=== PATIENT | male | born 1995 | race Caucasian/White ===

== ENCOUNTER 2016-11-24 11:03 | Emergency (ER) | payer OTHER ==
[2016-11-24] MEDS ORDERED: NS 1,000 ML IV ONE (13:54)
[2016-11-24] MEDS ORDERED: MECLIZINE HCL 25 MG TAB PO ONE (13:54)
--- NOTE | 2016-11-24 13:54 | EDPHY ---
H & P Time Seen by Provider: 11/24/16 13:19 HPI/ROS: Chief complaint. Dizzy HPI. Patient is a 21-year-old male who presents with dizziness with head movement that started this morning. He feels slightly lightheaded and faint on standing. No abdominal pain, chest pain, shortness of breath. No recent upper respiratory symptoms or fever. No tinnitus. No similar symptoms previously. ROS Constitutional. no fever/chills, no weakness Eyes. no problems with vision ENT. no sore throat, no nasal drainage Cardiovascular. no chest pain Respiratory. no shortness of breath, no cough Abdominal. no abdominal pain, no nausea/vomiting, no diarrhea . no problems urinating MS. no calf pain/swelling, no neck/back pain, no joint pain Skin. no rash Lymph. no swollen glands Neuro. Lightheaded and dizzy Past Medical/Surgical History: Healthy Social History: Single, nonsmoker, no alcohol Smoking Status: Never smoked Physical Exam: General Appearance: Alert well-developed male mild distress vital signs are stable Eyes: Pupils equal and round no pallor or injection. ENT, Mouth: Mucous membranes are moist. Tympanic membranes are normal Respiratory: There are no retractions, lungs are clear to auscultation. Cardiovascular: Regular rate and rhythm. Gastrointestinal: Abdomen is soft and nontender, no masses, bowel sounds normal. Neurological: Awake and alert, sensory and motor exams grossly normal. Skin: Warm and dry, no rashes. Musculoskeletal: Neck is supple nontender. Extremities symmetrical, full range of motion. Psychiatric: Patient is oriented X 3, there is no agitation. Constitutional: Initial Vital Signs Temperature (C) 36.9 C 11/24/16 11:32 Heart Rate 75 11/24/16 11:32 Respiratory Rate 16 11/24/16 11:32 Blood Pressure 98/70 L 11/24/16 11:32 O2 Sat (%) 98 11/24/16 11:32 O2 Delivery Mode Room Air Allergies/Adverse Reactions: No Known Allergies Allergy (Verified 11/24/16 11:35) Home Medications: Medication Instructions Recorded Meclizine HCl [Antivert] 25 mg PO Q6-8PRN PRN #10 tablet 11/24/16 Medical Decision Making - Diagnostics EKG Interpretation: EKG interpreted by me shows normal sinus rhythm with normal interval and axis. QRS shows a right ventricular hypertrophy. There is no arrhythmia. The rate is 56 Procedures: IV normal saline. Meclizine by mouth ED Course/Re-evaluation: Re-evaluation 3:50 p.m.--patient now feels well and without symptoms Patient and I discussed lab and EKG findings. We discussed treatment plan including criteria for return importance of follow-up and further evaluation. He expresses understanding and agreement Differential Diagnosis: This sounds like vertigo as he has symptoms especially with head movement. He was somewhat dizzy on standing this could represent dehydration I considered acute coronary syndrome, arrhythmia, electrolyte abnormalities as well - Data Points Laboratory Results: Laboratory Results 11/24/16 14:10 11/24/16 14:10 11/24/16 11/24/16 14:10 14:10 WBC 6.17 10^3/uL 10^3/uL (3.80-9.50) RBC 5.55 10^6/uL 10^6/uL (4.40-6.38) Hgb 17.0 g/dL g/dL (13.7-17.5) Hct 48.1 % % (40.0-51.0) MCV 86.7 fL fL (81.5-99.8) MCH 30.6 pg pg (27.9-34.1) MCHC 35.3 g/dL g/dL (32.4-36.7) RDW 11.8 % % (11.5-15.2) Plt Count 198 10^3/uL 10^3/uL (150-400) MPV 10.9 fL fL (8.7-11.7) Neut % (Auto) 67.4 % % (39.3-74.2) Lymph % (Auto) 25.4 % % (15.0-45.0) [place] % (Auto) 5.3 % % (4.5-13.0) Eos % (Auto) 1.1 % % (0.6-7.6) Baso % (Auto) 0.5 % % (0.3-1.7) Nucleat RBC Rel Count 0.0 % % (0.0-0.2) Absolute Neuts (auto) 4.15 10^3/uL 10^3/uL (1.70-6.50) Absolute Lymphs (auto) 1.57 10^3/uL 10^3/uL (1.00-3.00) Absolute Monos (auto) 0.33 10^3/uL 10^3/uL (0.30-0.80) Absolute Eos (auto) 0.07 10^3/uL 10^3/uL (0.03-0.40) Absolute Basos (auto) 0.03 10^3/uL 10^3/uL (0.02-0.10) Absolute Nucleated RBC 0.00 10^3/uL 10^3/uL (0-0.01) Immature Gran % 0.3 % % (0.0-1.1) Immature Gran # 0.02 10^3/uL 10^3/uL (0.00-0.10) Sodium 141 mEq/L mEq/L (134-144) Potassium 3.9 mEq/L mEq/L (3.5-5.2) Chloride 102 mEq/L mEq/L (97-110) Carbon Dioxide 26 mEq/l mEq/l (22-31) Anion Gap 13 mEq/L mEq/L (8-16) BUN 15 mg/dL mg/dL (7-23) Creatinine 1.1 mg/dL mg/dL (0.7-1.3) Estimated GFR > 60 Glucose 85 mg/dL mg/dL (70-100) Calcium 10.5 mg/dL H mg/dL (8.5-10.4) Medications Given: Discontinued Medications Sodium Chloride (Ns) 1,000 mls @ 0 mls/hr IV ONCE ONE; Wide Open PRN Reason: Protocol Stop: 11/24/16 13:55 Last Admin: 11/24/16 14:04 Dose: 1,000 mls Meclizine HCl (Meclizine Hcl) 25 mg PO EDNOW ONE Stop: 11/24/16 13:55 Last Admin: 11/24/16 14:04 Dose: 25 mg Departure - Departure Disposition: Home, Routine, Self-Care Clinical Impression: Vertigo Condition: Good Instructions: Vertigo (ED) Additional Instructions: Drink plenty of fluids and stay hydrated. Regular meals and get plenty of rest. Meclizine as needed for dizziness. Return for worsening dizziness, chest discomfort, trouble breathing. Recheck in 1-2 days for continuing symptoms Referrals: [facility] [Other] - As per Instructions Prescriptions: Meclizine HCl [Antivert] 25 mg PO Q6-8PRN PRN #10 tablet PRN Reason: Dizziness
--- NOTE | 2016-11-24 14:25 | CPEKG ---
Heart Rate: 56 RR Interval: 1071 P-R Interval: 140 QRSD Interval: 102 QT Interval: 416 QTC Interval: 402 P Butler: 70 QRS Butler: 146 T Wave Butler: 76 EKG Severity - ABNORMAL ECG - EKG Impression: SINUS RHYTHM EKG Impression: PROBABLE RIGHT VENTRICULAR HYPERTROPHY Electronically Signed By: Kraig Bernardo 24-Nov-2016 21:09:57
[2016-11-24 15:18] LABS: % IMMATURE GRANULYOCYTES 0.3 % (0.0-1.1); ABSOLUTE IMMATURE GRANULOCYTES 0.02 10^3/uL (0.00-0.10); ADD DIFF? NO; ADD MORPH? NO; ADD SCAN? NO; ATYPICAL LYMPHOCYTE FLAG 0 (0-99); FRAGMENT RBC FLAG 0 (0-99); HEMATOCRIT 48.1 % (40.0-51.0); LEFT SHIFT FLG 0 (0-99); LIPEMIA HEMOLYSIS FLAG 90 (0-99); MEAN CELL HEMOGLOBIN 30.6 pg (27.9-34.1); MEAN CELL HEMOGLOBIN CONCENTR. 35.3 g/dL (32.4-36.7); MEAN CELL VOLUME 86.7 fL (81.5-99.8); MEAN PLATELET VOLUME 10.9 fL (8.7-11.7); PLATELET CLUMPS FLAG 10 (0-99); PLATELET COUNT 198 10^3/uL (150-400); RED BLOOD CELL COUNT 5.55 10^6/uL (4.40-6.38); RED CELL DISTRIBUTION WIDTH 11.8 % (11.5-15.2)
[2016-11-24 15:23] LABS: ANION GAP 13 mEq/L (8-16); CALCIUM 10.5 mg/dL (8.5-10.4); CARBON DIOXIDE 26 mEq/l (22-31); CHLORIDE 102 mEq/L (97-110); CREATININE 1.1 mg/dL (0.7-1.3); GLOMERULAR FILTRATION RATE > 60; GLUCOSE 85 mg/dL (70-100); POTASSIUM 3.9 mEq/L (3.5-5.2); SODIUM 141 mEq/L (134-144)
[2016-11-24 16:19] VITALS: BP 102/61; PULSE 59; RESP 16; TEMP 97.9; O2SAT 99
== END 2016-11-24 16:19 | disposition home or self-care (01) ==
DX: R42 Dizziness and giddiness (principal); E86.9 Volume depletion, unspecified